=== PATIENT | male | born 1950 | race Caucasian/White ===

== ENCOUNTER 2016-02-18 10:46 | Emergency (ER) | payer BC ==
[~2016-02-18] VITALS: Ht 175.3 cm; Wt 63.5 kg
[2016-02-18 10:51] VITALS: Ht 175.3 cm; Wt 63.5 kg
[2016-02-18] MEDS ORDERED: SOD CHLORIDE 0.9% 1,000 ML IV ONE (12:30)
[2016-02-18] MEDS ORDERED: PIPER-TAZO 3.375 GM IV (PMX) 100 ML IVPB ONE (12:30)
[2016-02-18] MEDS ORDERED: HYDROCODONE/APAP (5/325) TAB PO ONE (12:30)
[2016-02-18] MEDS ORDERED: ONDANSETRON 4 MG TAB PO ONE (12:30)
[2016-02-18 12:49] LABS: BASOPHILS % 0.3 % (0.0-2.0); EOSINOPHILS % 0.2 % (0.0-7.0); HEMATOCRIT 51.1 % (42.0-52.0); HEMOGLOBIN 17.4 g/dl (14.0-18.0); LYMPHOCYTES # 1.4 10^3/ul (0.8-2.9); MEAN CORPUSCULAR HEMOGLOBIN 36.5 pg (29.0-33.0); MEAN CORPUSCULAR HGB CONC 34.1 g/dl (32.0-37.0); MEAN PLATELET VOLUME 7.6 fl (7.4-10.4); MONOCYTES % 13.5 % (0.0-11.0); NEUTROPHIL # 4.9 10^3/ul (1.6-7.5); PLATELET COUNT 158 10^3/UL (140-440); RED BLOOD COUNT 4.77 10^6/ul (4.70-6.10); RED CELL DISTRIBUTION WIDTH 12.4 % (11.5-14.5); UNCORRECTED WBC 7.4 10^3/ul (4.8-10.8); WHITE BLOOD COUNT 7.4 10^3/ul (4.8-10.8)
[2016-02-18 13:04] LABS: CONDITION 1; LH ANALYZER COMMENTS 1
[2016-02-18] MEDS ORDERED: METF500T4 PO (13:45)
[2016-02-18] MEDS ORDERED: TEMA15CA6 PO (13:45)
[2016-02-18] MEDS ORDERED: BENA10TA48 PO (13:46)
[2016-02-18] MEDS ORDERED: GABA300C16 PO (13:46)
--- NOTE | 2016-02-18 13:46 | RADRPT ---
PROCEDURE: XR Foot. CLINICAL INDICATION: Cellulitis of the left second toe. Foot pain. TECHNIQUE: Three views of the left foot are available for review. COMPARISON: None available FINDINGS: The osseous structures, articular spaces, and surrounding soft tissues are intact. Benign the subtle mild chronic degenerative osteoarthropathy of the first MTP joint is identified. No acute fracture or dislocation is seen. No radiopaque foreign body is identified. Bony mineralization is normal. L arge plantar calcaneal spur is identified. Atherosclerotic vascular calcifications are identified. T he left second toes grossly unremarkable. No bony erosion or bony destructive process is identified . There is no x-ray evidence for osteomyelitis. IMPRESSION: 1. Scattered benign senescent changes 3. Degenerative osteoarthrosis of the left first MTP joint. 2. Atherosclerotic vascular calcifications. 4. No bony erosion or bony destructive process of the left second toe. RPTAT: HMJB .Harjeet Mosqueda MD, Date Time Electronically viewed and signed by .Harjeet Mosqueda MD, on 02/18/2016 13:46 .B/
[2016-02-18 15:21] LABS: ALBUMIN 4.6 g/dl (3.3-4.9); POTASSIUM 4.9 mmol/L (3.5-5.1)
[2016-02-18 15:23] LABS: BILIRUBIN,INDIRECT 0.9 mg/dl (0-1.1); BILIRUBIN,TOTAL 0.9 mg/dl (0.2-1.3); CREATININE 0.67 mg/dl (0.61-1.24)
[2016-02-18 15:24] LABS: ALBUMIN/GLOBULIN RATIO 1.04; CALCIUM 9.7 mg/dl (8.4-10.2)
--- NOTE | 2016-02-18 15:49 | ERD ---
ER Documentation Chief Complaint Date/Time DATE: 02/18/16 TIME: 15:39 Chief Complaint left 2nd toe cellulitis worse x 2 weeks sent by pmd HPI Patient is a noncompliant diabetic who states he has had a wound on his left second toe for over 90 days. He says it started turning red and swollen over the last several days. He went to see his primary care physician who sent him here for further evaluation. He denies any fever, chills, abdominal pain, nausea, vomiting, or any other abnormal rashes, bleeding, or bruises. He states the redness is only on the toe and a little bit on the top of his foot. He denies any significant pain to ambulation. He denies any drainage from the wound. He denies any recurrent injury to the foot. ROS All systems reviewed and are negative except as per history of present illness. Medications Home Meds Reported Medications Gabapentin* (Gabapentin*) 300 Mg Capsule, 300 MG PO TID, #90 CAP 02/18/16 Benazepril Hcl* (Benazepril Hcl*) 10 Mg Tablet, 10 MG PO DAILY, #30 TAB 02/18/16 Metformin* (Glucophage*) 500 Mg Tab, 500 MG PO BID WITH MEALS, #30 TAB 02/18/16 Temazepam* (Restoril*) 15 Mg Capsule, 15 MG PO HS Y for INSOMNIA, CAP 02/18/16 Allergies Allergies: Coded Allergies: No Known Allergy (Unverified , 02/18/16) PMhx/Soc Medical and Surgical Hx: pt denies Surgical Hx History of Surgery: No Anesthesia Reaction: No Hx Neurological Disorder: No Hx Respiratory Disorders: No Hx Cardiac Disorders: Yes (htn) Hx Psychiatric Problems: No Hx Miscellaneous Medical Probl: Yes (dm) Hx Alcohol Use: Yes (6-pack/day) Hx Substance Use: No Hx Tobacco Use: No Smoking Status: Former smoker FmHx Family History: diabetes Physical Exam Vitals Vital Signs Date Time Temp Pulse Resp B/P Pulse Ox O2 Delivery O2 Flow Rate FiO2 02/18/16 10:51 97.7 100 20 176/111 99 Physical Exam Const: Well-developed thin male sitting on the bed in no acute distress Head: Atraumatic normocephalic Eyes: Normal Conjunctiva ENT: Normal External Ears, Nose and Mouth. Neck: Full range of motion..~ No meningismus. Resp: Clear to auscultation bilaterally Cardio: Regular rate and rhythm, no murmurs Abd: Soft, non tender, non distended. Normal bowel sounds Skin: No petechiae , left second toe has a small ulceration on the dorsum of it which is scabbed over, there is some surrounding erythema of the ulceration which extends to the base of the toe and slightly onto the dorsum of the foot. It is warm and tender to touch. There is no fluctuation or abscess formation. There is no purulence that I can express from the wound. Back: No midline or flank tenderness Ext: No cyanosis, or edema, patient has a paucity of hair on his lower extremities consistent with someone who most likely has some peripheral vascular disease. He also has some notable bruises in variable stages on his upper extremities. Neur: Awake and alert Psych: Normal Mood and Affect Result Diagram: 02/18/16 1215 02/18/16 1215 Results 24 hrs Laboratory Tests Test 02/18/16 12:15 Alanine Aminotransferase (ALT/SGPT) 42IU/L Albumin 4.6g/dl Albumin/Globulin Ratio 1.04 Alkaline Phosphatase 97IU/L Anion Gap 18 Aspartate Amino Transf (AST/SGOT) 56IU/L Basophils # 0.010^3/ul Basophils % 0.3% Blood Morphology Comment Blood Urea Nitrogen 8mg/dl Calcium Level 9.7mg/dl Carbon Dioxide Level 27mmol/L Chloride Level 91mmol/L Creatinine 0.67mg/dl Direct Bilirubin 0.00mg/dl Eosinophils # 0.010^3/ul Eosinophils % 0.2% Globulin 4.40g/dl Glucose Level 185mg/dl Hematocrit 51.1% Hemoglobin 17.4g/dl Indirect Bilirubin 0.9mg/dl Lymphocytes # 1.410^3/ul Lymphocytes % 19.0% Mean Corpuscular Hemoglobin 36.5pg Mean Corpuscular Hemoglobin Concent 34.1g/dl Mean Corpuscular Volume 107.0fl Mean Platelet Volume 7.6fl Monocytes # 1.010^3/ul Monocytes % 13.5% Neutrophils # 4.910^3/ul Neutrophils % 67.0% Nucleated Red Blood Cells # 0.010^3/ul Nucleated Red Blood Cells % 0.0/100WBC Platelet Count 93406^3/UL Potassium Level 4.9mmol/L Red Blood Count 4.7710^6/ul Red Cell Distribution Width 12.4% Sodium Level 131mmol/L Total Bilirubin 0.9mg/dl Total Protein 9.0g/dl White Blood Count 7.410^3/ul Current Medications Medications (Trade) Dose Ordered Sig/Butch Route PRN Reason Start Time Stop Time Status Last Admin Dose Admin Sodium Chloride 1,000 ml @ 1,000 mls/hr Q1H ONCE IV 02/18/16 12:30 02/18/16 13:29 DC 02/18/16 12:44 Piperacillin Sod/ Tazobactam Sod (Zosyn 3.375gm/ 100 ml (Pmx)) 100 ml @ 200 mls/hr ONCE ONCE IVPB 02/18/16 12:30 02/18/16 12:59 DC 02/18/16 12:44 Acetaminophen/ Hydrocodone Bitart ([place] (5/325)) 2 tab ONCE ONCE PO 02/18/16 12:30 02/18/16 12:31 DC 02/18/16 12:44 Ondansetron HCl (Zofran Tab) 4 mg ONCE ONCE PO 02/18/16 12:30 02/18/16 12:31 DC 02/18/16 12:44 Procedures/MDM Patient is afebrile with a normal white count and no evidence of osteomyelitis at this time. He has not been given a trial of outpatient antibiotics. It appears that he is stable for discharge with a trial of outpatient antibiotics and close follow-up with his primary care physician. He has been encouraged to return to the emergency department if anything changes or any new or worsening symptoms such as fever or systemic chills or rigors develop. Departure Diagnosis: Primary Impression: Cellulitis Site of cellulitis: extremity Site of cellulitis of extremity: toe Laterality: left Qualified Code: L03.032 - Cellulitis of toe of left foot Additional Impression: Diabetes Diabetes mellitus type: type 2 Diabetes mellitus complication status: with unspecified complications Diabetes mellitus long term care social worker insulin use: unspecified long term care social worker insulin use status Qualified Code: E11.8 - Type 2 diabetes mellitus with complication, unspecified long term care social worker insulin use status Condition: Good Patient Instructions: Cellulitis, DIABETES, General Info Referrals: [facility] Additional Instructions: Please take all your medications as prescribed. Washer wound with soap and water 3 times a day keeping it clean and dry. It is important that you look at your foot. If the redness continues to spread up her foot despite taking antibiotics she must immediately return to the emergency department for further evaluation. Please go to the wound care clinic so they may monitor the wound on your foot so that it heals completely. This is very important. OLYA KELSEY Feb 18, 2016 15:49
[2016-02-18] MEDS ORDERED: BACTDS PO (15:53)
[2016-02-18] MEDS ORDERED: CEPH-443 PO (15:56)
[2016-02-18 16:32] VITALS: BP 164/95; PULSE 94; RESP 18; TEMP 97.9
== END 2016-02-18 16:32 | disposition home or self-care (01) ==
LOC: E/R 10:46
DX: L03.032 Cellulitis of left toe (principal); E11.8 Type 2 diabetes mellitus with unspecified complications; I10 Essential (primary) hypertension; Z79.84 Long term (current) use of oral hypoglycemic drugs; Z87.891 Personal history of nicotine dependence
CPT/HCPCS: 73630; 80053; 85025; 87040; 96374; 99284; J2543; J7030